=== PATIENT | male | born 1960 | race African-American/Black ===

== ENCOUNTER 2018-08-28 16:26 | Emergency (ER) | payer BC, OTHER ==
[2018-08-28 16:33] VITALS: BP 141/88; PULSE 75; TEMP 98.7; BMI 29.7
--- NOTE | 2018-08-28 16:34 | PDOC ---
Rapid Medical Evaluation Chief Complaint: Lightheaded Time Seen by Provider: 08/28/18 16:29 Medical Evaluation: Allergies Allergy/AdvReac Type Severity Reaction Status Date / Time No Known Allergies Allergy Verified 10/19/13 09:51 08/28/18 16:31 I have performed a brief in person evaluation of this patient. The patient present with a CC of: Dizziness Pt is a 58 YO male who states that he was at work and bent down and stood back up and he felt dizzy and he fell to his knees. He denies hitting his head, denies CP. Pt is currently asymptomatic. Pertinent PE findings: Lungs Clear Heart RRR Abd: Soft, non distended. Neuro: Alert and oriented. Smile is symmetric. 5/5 strength in UE and LE. No protonator drift. MS: Moves all extremities without difficulty. Psych: Appropriate affect. I have ordered the following: EKG and basic labs The patient will proceed to the ED for further evaluation: Discharge Disposition - Diagnosis Dizziness - Referrals - Patient Instructions - Post Discharge Activity
[2018-08-28 17:05] LABS: BASO % 1.4 % (0-2.0); EOS % 4.2 % (0-4.5); HEMATOCRIT 45.8 % (35.4-49); HEMOGLOBIN 14.7 GM/dL (11.7-16.9); LYMPH % 27.9 % (8-40); MCH 26.5 pg (25.7-33.7); MCHC 32.2 g/dl (32.0-35.9); MEAN CELL VOLUME 82.4 fl (80-96); MEAN PLT VOLUME 7.6 fl (7.5-11.1); MONO % 9.2 % (3.8-10.2); NEUT % 57.3 % (42.8-82.8); PLATELET COUNT 334 K/MM3 (134-434); RBC 5.56 M/mm3 (4.00-5.60); RDW 13.5 % (11.9-15.9); WHITE BLOOD COUNT 6.6 K/mm3 (4.0-10.0)
[2018-08-28 17:12] LABS: URINE APPEARANCE CLEAR; URINE BILIRUBIN NEGATIVE (<2.0 mg/dL); URINE COLOR YELLOW; URINE GLUCOSE (UA) NEGATIVE (NEGATIVE); URINE KETONE NEGATIVE (NEGATIVE); URINE LEUK ESTERASE NEGATIVE (NEGATIVE); URINE NITRITE NEGATIVE (NEGATIVE); URINE PROTEIN NEGATIVE (NEGATIVE); URINE UROBILINOGEN NEGATIVE mg/dL (0.2-1.0)
[2018-08-28] MEDS ORDERED: SODIUM CHLORIDE 1,000 ML IV STA (17:21)
[2018-08-28 17:34] LABS: INR 1.02 (0.83-1.09)
--- NOTE | 2018-08-28 17:42 | PDOC ---
History of Present Illness - History of Present Illness Initial Comments: 08/28/18 17:49 The patient is a 58 year old male with a significant PMH of hypertension and hyperlipidemia who presents to the emergency department s/p near-syncopal episode. Patient states he twisted his head to look at something and suddenly began feeling lightheaded and dizzy. Patient reports he fell on his buttocks, but denies any head trauma. Patient notes he returned to his baseline shortly after. Patient has no complaints here in the ER. The patient denies chest pain, shortness of breath, headache and dizziness. Denies fever, chills, nausea, vomit, diarrhea and constipation. Denies dysuria, frequency, urgency and hematuria. Allergies: NKA Past surgical history: None reported. Social history: No reported alcohol, drug or cigarette use. PCP: Dr. Whitehead <Nataly Nails - Last Filed: 08/28/18 17:49> - General History Source: Patient Exam Limitations: No Limitations <Mg West - Last Filed: 08/28/18 18:18> - General Chief Complaint: Lightheaded Stated Complaint: WEAKNESS Time Seen by Provider: 08/28/18 16:29 Past History <Nataly Nails - Last Filed: 08/28/18 17:49> - Past Medical History COPD: No HTN: Yes Hypercholesterolemia: Yes - Suicide/Smoking/Psychosocial Hx Smoking History: Never smoked Have you smoked in the past 12 months: No Number of Cigarettes Smoked Daily: 0 Information on smoking cessation initiated: No Hx Alcohol Use: No Drug/Substance Use Hx: No Substance Use Type: None <Mg West - Last Filed: 08/28/18 18:18> - Past Medical History Allergies/Adverse Reactions: Allergies Allergy/AdvReac Type Severity Reaction Status Date / Time No Known Allergies Allergy Verified 08/28/18 16:33 Home Medications: Ambulatory Orders Amlodipine Besylate/Benazepril [Lotrel 5-20 mg Capsule] 1 each PO DAILY Meclizine HCl [Antivert -] 25 mg PO TID #30 tablet 10/19/13 Simvastatin [Zocor -] 40 mg PO HS 10/19/13 Review of Systems - Review of Systems Able to Perform ROS?: Yes Comments:: 08/28/18 17:44 ADULT ROS GENERAL/CONSTITUTIONAL: No fever or chills. No weakness. HEAD, EYES, EARS, NOSE AND THROAT: No change in vision. No ear pain or discharge. No sore throat. CARDIOVASCULAR: No chest pain or shortness of breath. RESPIRATORY: No cough, wheezing, or hemoptysis. GASTROINTESTINAL: No nausea, vomiting, diarrhea or constipation. GENITOURINARY: No dysuria, frequency, or change in urination. MUSCULOSKELETAL: No joint or muscle swelling or pain. No neck or back pain. SKIN: No rash NEUROLOGIC: No headache, vertigo, loss of consciousness, or change in strength/ sensation. (+) Near-syncope, lightheadedness. ENDOCRINE: No increased thirst. No abnormal weight change. HEMATOLOGIC/LYMPHATIC: No anemia, easy bleeding, or history of blood clots. ALLERGIC/IMMUNOLOGIC: No hives or skin allergy. <Nataly Nails - Last Filed: 08/28/18 17:49> *Physical Exam - Vital Signs Last Vital Signs Temp Pulse Resp BP Pulse Ox 98.7 F 75 18 141/88 100 08/28/18 16:31 08/28/18 16:31 08/28/18 16:31 08/28/18 16:31 08/28/18 16:31 - Physical Exam Comments: 08/28/18 17:44 ADULT EXAM GENERAL: Awake, alert, and fully oriented, in no acute distress HEAD: No signs of trauma EYES: PERRLA, EOMI, sclera anicteric, conjunctiva clear ENT: Auricles normal inspection, hearing grossly normal, nares patent, oropharynx clear without exudates. Moist mucosa NECK: Normal ROM, supple, no lymphadenopathy, JVD, or masses LUNGS: Breath sounds equal, clear to auscultation bilaterally. No wheezes, and no crackles HEART: Regular rate and rhythm, normal S1 and S2, no murmurs, rubs or gallops ABDOMEN: Soft, nontender, normoactive bowel sounds. No guarding, no rebound. No masses EXTREMITIES: Normal range of motion, no edema. No clubbing or cyanosis. No cords, erythema, or tenderness NEUROLOGICAL: Cranial nerves II through XII grossly intact. Normal speech, normal gait SKIN: Warm, Dry, normal turgor, no rashes or lesions noted. <Nataly Nails - Last Filed: 08/28/18 17:49> - Vital Signs Last Vital Signs Temp Pulse Resp BP Pulse Ox 98.7 F 75 18 141/88 100 08/28/18 16:31 08/28/18 16:31 08/28/18 16:31 08/28/18 16:31 08/28/18 16:31 <Mg West - Last Filed: 08/28/18 18:18> Heart Score/ECG Review #1 ECG reviewed & interpreted by me at: 16:35 08/28/18 17:41 NSR 71, no std/mickie, normal axis, normal intervals, no brugada, no HOCM, no WPW, QTC 419 msec <Mg West - Last Filed: 08/28/18 18:18> ED Treatment Course - LABORATORY CBC & Chemistry Diagram: 08/28/18 16:54 08/28/18 16:53 - ADDITIONAL ORDERS Additional order review: Laboratory Results 08/28/18 08/28/18 16:58 16:54 PT with INR 12.00 INR 1.02 Urine Color Yellow Urine Appearance Clear Urine pH 5.0 Ur Specific [place] 1.018 Urine Protein Negative Urine Glucose (UA) Negative Urine Ketones Negative Urine Blood Negative Urine Nitrite Negative Urine Bilirubin Negative Urine Urobilinogen Negative Ur Leukocyte Esterase Negative 08/28/18 16:54 RBC 5.56 MCV 82.4 MCHC 32.2 RDW 13.5 MPV 7.6 Neutrophils % 57.3 Lymphocytes % 27.9 Monocytes % 9.2 Eosinophils % 4.2 Basophils % 1.4 <Nataly Nails - Last Filed: 08/28/18 17:49> - LABORATORY CBC & Chemistry Diagram: 08/28/18 16:54 08/28/18 16:53 - ADDITIONAL ORDERS Additional order review: Laboratory Results 08/28/18 08/28/18 16:58 16:54 PT with INR 12.00 INR 1.02 Urine Color Yellow Urine Appearance Clear Urine pH 5.0 Ur Specific [place] 1.018 Urine Protein Negative Urine Glucose (UA) Negative Urine Ketones Negative Urine Blood Negative Urine Nitrite Negative Urine Bilirubin Negative Urine Urobilinogen Negative Ur Leukocyte Esterase Negative 08/28/18 16:54 RBC 5.56 MCV 82.4 MCHC 32.2 RDW 13.5 MPV 7.6 Neutrophils % 57.3 Lymphocytes % 27.9 Monocytes % 9.2 Eosinophils % 4.2 Basophils % 1.4 <Mg West - Last Filed: 08/28/18 18:18> Medical Decision Making - Medical Decision Making 08/28/18 17:37 A portion of this note was documented by scribe services under my direction. I have reviewed the details of the note, within reason, and agree with the documentation with the following case summary and management plan written by me. Patient treated in the ED. Nursing notes are reviewed and incorporated into the medical decision-making. Vital signs reviewed. Peripheral IV access obtained by the nurse, laboratory studies are drawn and sent, reviewed and interpreted by myself. Vital Signs Temp Pulse Resp BP Pulse Ox 98.7 F 75 18 141/88 100 08/28/18 16:31 08/28/18 16:31 08/28/18 16:31 08/28/18 16:31 08/28/18 16:31 58-year-old male with history of hypertension, hyperlipidemia presents with near-syncope. The patient woke up in his usual state health and was feeling well. He was working and when he was twisting his had to take a look at an object at his job, the patient's son he felt flushed, warm, lightheaded and dizzy and subsequently had a near syncopal episode. He fell on his buttocks but denies head trauma or injuries. Denies chest pain, short of breath outpatient. Patient returned back to baseline and felt okay but his job insisted that he came to the ER for an evaluation. The patient has no physical trauma or injuries at this moment. He is at baseline. I suspect the patient had vasovagal near syncope. EKG is reassuring and with no acute finding. If the blood work and x-rays no acute finds, the patient be discharged home with his family. 08/28/18 18:10 CBC, BMP 08/28/18 16:54 08/28/18 16:53 CMP Sodium 139 mmol/L (136-145) 08/28/18 16:53 Potassium 4.5 mmol/L (3.5-5.1) 08/28/18 16:53 Chloride 102 mmol/L (98-107) 08/28/18 16:53 Carbon Dioxide 29 mmol/L (21-32) 08/28/18 16:53 Anion Gap 7 MMOL/L (8-16) L 08/28/18 16:53 BUN 13 mg/dL (7-18) 08/28/18 16:53 Creatinine 0.9 mg/dL (0.55-1.3) 08/28/18 16:53 Creat Clearance w eGFR > 60 (>60) 08/28/18 16:53 Random Glucose 95 mg/dL (74-106) 08/28/18 16:53 Calcium 9.2 mg/dL (8.5-10.1) 08/28/18 16:53 Total Bilirubin 0.4 mg/dL (0.2-1) 08/28/18 16:53 AST 40 U/L (15-37) H 08/28/18 16:53 ALT 47 U/L (13-61) 08/28/18 16:53 Alkaline Phosphatase 119 U/L (45-117) H 08/28/18 16:53 Creatine Kinase 1055 IU/L (26-308) H 08/28/18 16:53 Creatine Kinase Index 1.3 % (0.0-5.0) 08/28/18 16:53 CK-MB (CK-2) 14.3 ng/mL (0.5-3.6) H 08/28/18 16:53 Troponin I < 0.02 ng/ml (0.00-0.05) 08/28/18 16:53 Total Protein 8.2 g/dl (6.4-8.2) 08/28/18 16:53 Albumin 4.5 g/dl (3.4-5.0) 08/28/18 16:53 Labs reviewed. Ck 1055. Pt ordered for 1 liter of IV fluids. Encouraged PO hydration. Pt feels great and would like to go home. Family will drive patient home. I discussed the physical exam findings, ancillary test results and final diagnoses with the patient. I answered all of the patient's questions. The patient was satisfied with the care received and felt comfortable with the discharge plan and treatment plan. The patient will call their primary care physician within 24 hours to arrange follow-up and will return to the Emergency Department with any new, persistant or worsening symptoms. <Mg West - Last Filed: 08/28/18 18:18> *DC/Admit/Observation/Transfer - Attestations Scribe Attestion: 08/28/18 17:45 Documentation prepared by Nataly Nails, acting as outside medical sales representative for Mg West MD. <Nataly Nails - Last Filed: 08/28/18 17:49> - Discharge Dispostion Decision to Admit order: No <Mg West - Last Filed: 08/28/18 18:18> Diagnosis at time of Disposition: Vasovagal near syncope - Discharge Dispostion Disposition: HOME Condition at time of disposition: Good - Referrals Referrals: Matt Whitehead MD [Primary Care Provider] - - Patient Instructions Printed Discharge Instructions: DI for Dehydration -- Adult Additional Instructions: Please drink plenty of fluids. Follow up with your doctor. - Post Discharge Activity
[2018-08-28 17:46] LABS: ALBUMIN 4.5 g/dl (3.4-5.0); ALK PHOS 119 U/L (45-117); ANION GAP 7 MMOL/L (8-16); BILIRUBIN,TOTAL 0.4 mg/dL (0.2-1); BLOOD UREA NITROGEN 13 mg/dL (7-18); CALCIUM 9.2 mg/dL (8.5-10.1); CHLORIDE 102 mmol/L (98-107); CO2 29 mmol/L (21-32); CREATININE 0.9 mg/dL (0.55-1.3); GLUCOSE,RANDOM 95 mg/dL (74-106); POTASSIUM 4.5 mmol/L (3.5-5.1); SGOT/AST 40 U/L (15-37); SGPT/ALT 47 U/L (13-61); SODIUM 139 mmol/L (136-145); TOT PROT 8.2 g/dl (6.4-8.2)
--- NOTE | 2018-08-29 09:39 | EKG ---
Test Reason : Blood Pressure : / mmHG Vent. Rate : 071 BPM Atrial Rate : 071 BPM P-R Int : 182 ms QRS Dur : 102 ms QT Int : 386 ms P-R-T Axes : 040 000 046 degrees QTc Int : 419 ms NORMAL SINUS RHYTHM NORMAL ECG WHEN COMPARED WITH ECG OF 19-OCT-2013 09:51, NO SIGNIFICANT CHANGE WAS FOUND Confirmed by FUAD BOLANOS MD ([id number]) on 08/29/2018 9:39:00 AM Referred By: Confirmed By:FUAD BOLANOS MD
== END 2018-08-28 19:24 | disposition home or self-care (01) ==
LOC: JER 16:26
PROC: 3E0337Z Introduction of Electrolytic and Water Balance Substance into Peripheral Vein, Percutaneous Approach (ICD-10-PCS; principal; 2018-08-28)
DX: R55 Syncope and collapse (principal); I10 Essential (primary) hypertension; E78.00 Pure hypercholesterolemia, unspecified
CPT/HCPCS: 36415; 80053; 81003; 82550; 82553; 84484; 85025; 85610; 93005; 93010; 99282-25; J7030

== ENCOUNTER 2019-02-04 18:00 | Emergency (ER) | payer OTHER, BC ==
--- NOTE | 2019-02-04 18:08 | PDOC ---
Rapid Medical Evaluation Time Seen by Provider: 02/04/19 18:05 Medical Evaluation: Allergies Allergy/AdvReac Type Severity Reaction Status Date / Time No Known Allergies Allergy Verified 08/28/18 16:33 02/04/19 18:05 I have performed a brief in-person evaluation of this patient. The patient presents with a chief complaint of: knee gace out on him while at work Pertinent physical exam findings: no gross deficits I have ordered the following: x-ray R knee The patient will proceed to the ED for further evaluation. Discharge Disposition - Diagnosis Knee injury - Referrals - Patient Instructions - Post Discharge Activity
[2019-02-04 18:09] VITALS: BP 148/91; PULSE 86; TEMP 97.1; BMI 29.5
[2019-02-04] MEDS ORDERED: IBUPROFEN 400 MG TABLET (FP) PO ONE ×2 (19:02→19:05)
--- NOTE | 2019-02-04 19:19 | PDOC ---
History of Present Illness - General Chief Complaint: Injury Stated Complaint: KNEE/INJURY Time Seen by Provider: 02/04/19 18:05 History Source: Patient Exam Limitations: No Limitations Past History - Past Medical History Allergies/Adverse Reactions: Allergies Allergy/AdvReac Type Severity Reaction Status Date / Time No Known Allergies Allergy Verified 02/04/19 18:07 Home Medications: Ambulatory Orders Amlodipine Besylate/Benazepril [Lotrel 5-20 mg Capsule] 1 each PO DAILY Meclizine HCl [Antivert -] 25 mg PO TID #30 tablet 10/19/13 Simvastatin [Zocor -] 40 mg PO HS 10/19/13 COPD: No HTN: Yes Hypercholesterolemia: Yes - Immunization History Immunization Up to Date: Yes - Suicide/Smoking/Psychosocial Hx Smoking History: Never smoked Have you smoked in the past 12 months: No Number of Cigarettes Smoked Daily: 0 Hx Alcohol Use: No Drug/Substance Use Hx: No Substance Use Type: None *Physical Exam - Vital Signs Last Vital Signs Temp Pulse Resp BP Pulse Ox 97.1 F L 86 17 148/91 97 02/04/19 18:07 02/04/19 18:07 02/04/19 18:07 02/04/19 18:07 02/04/19 18:07 - Physical Exam General Appearance: No: Apparent Distress Vascular Pulses: Dorsalis-Pedis (R): 2+, Doralis-Pedis (L): 2+ Extremity: positive: Other (unable to fully flex R knee, mild swelling and TTP along R lateral aspect of knee, no joint effusion, no joint laxity noted; unable to test Gilmer test) Integumentary: positive: Normal Color. negative: Swelling, Ecchymosis Neurologic: positive: Alert, Normal Mood/Affect ED Treatment Course - Medications Given in the ED: ED Medications Discontinued Medications Generic Name Dose Route Start Last Admin Trade Name Freq PRN Reason Stop Dose Admin Ibuprofen 800 mg 02/04/19 19:02 02/04/19 19:06 Motrin - PO 02/04/19 19:03 800 mg ONCE ONE Administration Medical Decision Making - Medical Decision Making 58 y/o M with hx of HTN and HLD presents with R knee pain. States was putting a window up and planted his feet to the right (not sure if maybe twisted R knee as planting it) and then developed pain. Denies falling, hearing a "popping" or "clicking" sensation. States has pain with flexion of R knee R knee xray shows joint space narrowing along lateral aspect of knee; no fracture noted Likely R knee meniscal injury R knee placed in knee immobilizer, given crutches Will refer to ortho Stable for dc 02/04/19 19:16 *DC/Admit/Observation/Transfer Diagnosis at time of Disposition: Meniscal injury Qualifiers: Encounter type: initial encounter Laterality: right Qualified Code(s): S83.8X1A - Sprain of other specified parts of right knee, initial encounter - Discharge Dispostion Disposition: HOME Condition at time of disposition: Stable Decision to Admit order: No - Referrals Referrals: Matt Whitehead MD [Primary Care Provider] - Wei Salcido DO [Staff Physician] - Call tomorrow - Patient Instructions Printed Discharge Instructions: DI for Meniscal Tear, How to Use Crutches Additional Instructions: Thank you for choosing [facility]. It was a pleasure taking care of you. Likely, you torn the meniscus of knee. You may take Motrin 600 mg every 6 hours by mouth as needed for mild to moderate pain. Take Motrin with food. You may apply ice to site to help with swelling. After 48 hours, you may switch to warm compresses You were referred to orthopedic for evaluation Return to the Emergency Department if your symptoms worsen or persist or other concerning symptoms. - Post Discharge Activity
== END 2019-02-04 19:30 | disposition home or self-care (01) ==
LOC: JERFT 18:00
PROC: 2W3QX1Z Immobilization of Right Lower Leg using Splint (ICD-10-PCS; principal; 2019-02-04)
DX: S83.8X1A Sprain of other specified parts of right knee, initial encounter (principal); X58.XXXA Exposure to other specified factors, initial encounter; Y93.89 Activity, other specified; Y92.89 Other specified places as the place of occurrence of the external cause; E78.5 Hyperlipidemia, unspecified; I10 Essential (primary) hypertension
CPT/HCPCS: 73562-TC-RT-FY; 99282-25

== ENCOUNTER 2020-11-14 16:47 | Emergency (ER) | payer BC, OTHER ==
[2020-11-14 16:53] VITALS: BP 141/80; PULSE 84; TEMP 98.3; BMI 31.8
[2020-11-14] MEDS ORDERED: BAMLANIVIMAB 700 MG in SODIUM CHLORIDE 180 ML IVPB ONE (17:09)
[2020-11-14 17:55] LABS: HEMOGLOBIN 14.7 GM/dL (11.7-16.9); MCH 27.1 pg (25.7-33.7); MCHC 32.7 g/dl (32.0-35.9); MEAN CELL VOLUME 82.9 fl (80-96); PLATELET COUNT 264 K/MM3 (134-434); RBC 5.42 M/mm3 (4.00-5.60); RDW 13.5 % (11.9-15.9); WHITE BLOOD COUNT 4.6 K/mm3 (4.0-10.0)
[2020-11-14 18:17] LABS: BLOOD UREA NITROGEN 11.8 mg/dL (7-18); CALCIUM 8.6 mg/dL (8.5-10.1)
== END 2020-11-14 20:56 | disposition home or self-care (01) ==
LOC: JER 16:47
DX: U07.1 COVID-19 (principal)
CPT/HCPCS: 36415; 80048; 85027; 99284-25; M0239; Q0239